=== PATIENT | female | born 1945 | race Caucasian/White ===

== ENCOUNTER 2016-11-18 12:34 | Inpatient (IN) | payer MEDICARE, MEDICAID ==
[2016-11-18] MEDS ORDERED: SODIUM CHLORIDE 0.9% 1000ML 1,000 ML IV ONE (13:06)
[2016-11-18] MEDS ORDERED: SODIUM CHLORIDE 0.9% FLUSH 10 ML SOL IV PRN (13:06)
[2016-11-18 13:21] LABS: HEMATOCRIT 33 % (35-47); MEAN CORPUSCULAR HGB CONC 35.3 gm/dl (32.0-36.0); MEAN CORPUSCULAR VOLUME 93 fL (81-99)
[2016-11-18] MEDS ORDERED: ACETAMINOPHEN 500 MG 500 MG TAB PO ONE (13:22)
[2016-11-18] MEDS ORDERED: ACETAMINOPHEN 500 MG 500 MG TAB ONE (13:24)
[2016-11-18 13:29] LABS: POTASSIUM 3.2 mMol/L (3.5-5.1)
[2016-11-18 13:59] LABS: BASOPHILS % (MANUAL) 0 % (0-3); EOSINOPHILS % (MANUAL) 0 % (0-9); LYMPHOCYTES % (MANUAL) 7 % (10-50); NORMAL RBCS PRESENT
[2016-11-18 14:43] LABS: APPEARANCE,URINE Slightly Cloudy; BILIRUBIN,URINE NEGATIVE (NEGATIVE); COLOR,URINE Yellow; GLUCOSE, URINE (UA) NEGATIVE (NEGATIVE); KETONES,URINE NEGATIVE (NEGATIVE); LEUKOCYTE ESTERASE ,URINE TRACE (NEGATIVE); NITRATE,URINE POSITIVE (NEGATIVE); OCCULT BLOOD,URINE NEGATIVE (NEG-TRACE)
[2016-11-18 14:51] LABS: RBC,URINE NEG (0-3AV/HPF)
[2016-11-18] MEDS ORDERED: ALBUTEROL HFA 60 PUFF/INHALER INH PRN (17:25)
[2016-11-18] MEDS: SODIUM CHLORIDE 0.9% 1000ML 1,000 ML IV SCH (17:36)
[2016-11-18] MEDS: SODIUM CHLORIDE 0.9% FLUSH 10 ML SOL IV SCH ×2 (17:37→21:34)
[2016-11-18] MEDS: ATORVASTATIN 10 MG TAB PO SCH (21:39)
[2016-11-18] MEDS: METOPROLOL TARTRATE 25 MG TAB PO SCH (21:39)
[2016-11-18] MEDS ORDERED: ACETAMINOPHEN 500 MG 500 MG TAB PO SCH (23:00)
[2016-11-19] MEDS: SODIUM CHLORIDE 0.9% 1000ML 1,000 ML IV SCH ×3 (02:58→16:57)
[2016-11-19] MEDS: SODIUM CHLORIDE 0.9% FLUSH 10 ML SOL IV SCH ×3 (03:00→20:13)
[2016-11-19 08:01] LABS: CALCIUM 8.4 mg/dl (8.5-10.1)
[2016-11-19 08:04] LABS: POTASSIUM 2.8 mMol/L (3.5-5.1)
[2016-11-19 08:08] LABS: HEMATOCRIT 31 % (35-47); MEAN CORPUSCULAR HGB CONC 35.5 gm/dl (32.0-36.0); MEAN CORPUSCULAR VOLUME 94 fL (81-99)
[2016-11-19] MEDS ORDERED: POTASSIUM CHLORIDE 2 MEQ/ML 60 MEQ, LIDOCAINE HCL 1% MDV 2 ML in SODIUM CHLORIDE 0.9% 1... IV ONE (08:34)
[2016-11-19 08:40] LABS: BASOPHILS % (MANUAL) 0 % (0-3); EOSINOPHILS % (MANUAL) 3 % (0-9); LYMPHOCYTES % (MANUAL) 15 % (10-50); NORMAL RBCS PRESENT
[2016-11-19] MEDS ORDERED: POTASSIUM CHLORIDE 2 MEQ/ML SOL IV ONE (09:40)
[2016-11-19] MEDS ORDERED: LIDOCAINE HCL 1% MPF SOL ONE (09:51)
[2016-11-19] MEDS: ENOXAPARIN 40 MG SOL SC SCH (10:06)
[2016-11-19] MEDS: POTASSIUM CHLORIDE 10 MEQ TER PO SCH ×2 (10:07→20:13)
[2016-11-19] MEDS: METOPROLOL TARTRATE 50 MG TAB PO SCH ×2 (10:07→20:15)
[2016-11-19] MEDS: CLOPIDOGREL 75 MG TAB PO SCH (10:07)
[2016-11-19] MEDS: THIAMINE 100 MG TAB PO SCH (10:07)
[2016-11-19] MEDS: ASPIRIN 81 MG CHEWABLE CTB PO SCH (10:07)
[2016-11-19] MEDS: ACETAMINOPHEN 500 MG 500 MG TAB PO PRN ×2 (10:24→19:57)
[2016-11-19] MEDS: METOPROLOL TARTRATE 25 MG TAB PO SCH (15:28)
[2016-11-19 16:11] LABS: CALCIUM 8.3 mg/dl (8.5-10.1); POTASSIUM 4.5 mMol/L (3.5-5.1)
[2016-11-19] MEDS: ATORVASTATIN 10 MG TAB PO SCH (20:14)
[2016-11-20 01:45] VITALS: TEMP 97.5
[2016-11-20] MEDS: SODIUM CHLORIDE 0.9% 1000ML 1,000 ML IV SCH ×2 (02:56→14:24)
[2016-11-20] MEDS: SODIUM CHLORIDE 0.9% FLUSH 10 ML SOL IV SCH ×2 (03:23→14:24)
[2016-11-20] MEDS: ACETAMINOPHEN 500 MG 500 MG TAB PO PRN (04:13)
[2016-11-20 07:28] LABS: CALCIUM 8.2 mg/dl (8.5-10.1); POTASSIUM 3.9 mMol/L (3.5-5.1)
[2016-11-20 07:52] LABS: BASOPHILS % (AUTO) 0 % (0-3); EOSINOPHILS % (AUTO) 1 % (0-9); HEMATOCRIT 29 % (35-47); MEAN CORPUSCULAR HGB CONC 35.6 gm/dl (32.0-36.0); MEAN CORPUSCULAR VOLUME 95 fL (81-99); MONOCYTES % (AUTO) 8.8 % (0-12); NEUTROPHILS % (AUTO) 79.1 % (37-80)
[2016-11-20 08:06] VITALS: BP 187/98
[2016-11-20] MEDS: ENOXAPARIN 40 MG SOL SC SCH (08:06)
[2016-11-20] MEDS: ASPIRIN 81 MG CHEWABLE CTB PO SCH (08:06)
[2016-11-20] MEDS: METOPROLOL TARTRATE 50 MG TAB PO SCH (08:06)
[2016-11-20] MEDS: THIAMINE 100 MG TAB PO SCH (08:06)
[2016-11-20] MEDS: CLOPIDOGREL 75 MG TAB PO SCH (08:06)
[2016-11-20] MEDS ORDERED: ACETAMINOPHEN 500 MG 500 MG TAB PO PRN (08:18)
[2016-11-20] MEDS ORDERED: FUROSEMIDE 20mg SOL IV ONE (08:26)
[2016-11-20] MEDS ORDERED: POTASSIUM CHLORIDE 10 MEQ TER PO SCH (09:00)
[2016-11-20] MEDS ORDERED: SULFAMETHOXAZOLE/TRIMETHOPRI 800/160 MG PO SCH (09:00)
[2016-11-20] MEDS ORDERED: BUSPIRONE HCL 5 MG TAB PO SCH (09:00)
[2016-11-20] MEDS ORDERED: MULTIVITAMIN2 1 EA TAB PO SCH (09:00)
[2016-11-20] MEDS ORDERED: FOLIC ACID 1 MG TAB PO SCH (09:00)
[2016-11-20] MEDS ORDERED: LISINOPRIL 5 MG TAB PO SCH (09:00)
[2016-11-20] MEDS ORDERED: ALBUTEROL NEB SOL 2.5MG/3ML 1 VIAL SOL NEB PRN (09:01)
[2016-11-20] MEDS ORDERED: FAMOTIDINE 20 MG TAB PO SCH (09:30)
[2016-11-20] MEDS ORDERED: SODIUM CHLORIDE NAS PRN (09:30)
[2016-11-20 09:43] VITALS: RESP 26
[2016-11-20 12:02] VITALS: PULSE 97; O2SAT 99
[2016-11-20] MEDS ORDERED: LEVOFLOXACIN 500 MG TAB PO SCH (13:41)
[2016-11-20] MEDS ORDERED: DONEPEZIL 5 MG 5 MG TAB PO SCH (21:00)
[2016-11-20] MEDS ORDERED: TRAZODONE HYDROCHLORIDE 50 MG TAB PO SCH (21:00)
[2016-11-20] MEDS ORDERED: PAROXETINE HYDROCHLORIDE 20 MG TAB PO SCH (21:00)
[2016-11-21] MEDS ORDERED: LEVOFLOXACIN 500 MG TAB PO SCH (09:00)
== END 2016-11-20 14:10 | DRG 641 ==
LOC: ED 12:34 → UNDOADMIN 16:09 → ACUTE CARE 16:09
PROVIDERS: ADMIT Family Medicine; ATTEND Family Medicine
DX: E87.1 Hypo-osmolality and hyponatremia (principal); N39.0 Urinary tract infection, site not specified; E87.6 Hypokalemia; F10.20 Alcohol dependence, uncomplicated; I25.10 Atherosclerotic heart disease of native coronary artery without angina pectoris; R41.0 Disorientation, unspecified; R91.8 Other nonspecific abnormal finding of lung field
CPT/HCPCS: 36415; 70450; 71010; 71270; 80048; 81001; 82140; 84484; 85007; 85025; 85027; 87040; 87077; 87088; 87186; 87804; 93005; 93012; 94640; 94760; 96365; 99284; 99291; J1650; J1940; J3480; J7603; Q9967; J2001